=== PATIENT | male | born 1990 | race Caucasian/White ===

== ENCOUNTER 2020-09-24 10:26 | Outpatient (CLI) | payer OTHER | END 2020-09-24 10:34 | disposition home or self-care (01) | LOC: RAD 10:26 | PROVIDERS: ATTEND Podiatrist Foot Surgery | DX: M86.071 Acute hematogenous osteomyelitis, right ankle and foot (principal); M86.072 Acute hematogenous osteomyelitis, left ankle and foot ==

== ENCOUNTER 2020-10-24 15:49 | Outpatient (CLI) | payer OTHER | END 2020-10-24 16:01 | disposition home or self-care (01) | LOC: RAD 15:49 | PROVIDERS: ATTEND Podiatrist Foot Surgery | DX: M20.41 Other hammer toe(s) (acquired), right foot (principal) ==

== ENCOUNTER → 2023-04-12 | Emergency (ER) | payer OTHER ==
[~2023-04-12] VITALS: Ht 172.7 cm; Wt 70.3 kg
== END | disposition left against medical advice (07) ==
LOC: ER 07:53
DX: M79.672 Pain in left foot (principal)

== ENCOUNTER 2024-09-08 12:52 | Emergency (ER) | payer OTHER ==
[~2024-09-08] VITALS: Ht 172.7 cm; Wt 77.1 kg
[2024-09-08] MEDS ORDERED: KETOROLAC TROMETHAMINE 30 MG VIAL IM STA (14:38)
== END 2024-09-08 14:42 | disposition home or self-care (01) ==
LOC: ER 12:55
DX: R07.89 Other chest pain (principal)

== ENCOUNTER → 2024-09-11 | Emergency (ER) | payer OTHER ==
[~2024-09-11] VITALS: Ht 172.7 cm; Wt 77.1 kg
[~2024-09-11] MED LIST: KETOROLAC TROMETHAMINE 60 MG VIAL IM ONE
== END | disposition home or self-care (01) ==
LOC: ER 13:12
DX: M94.0 Chondrocostal junction syndrome [Tietze] (principal)

== ENCOUNTER → 2024-12-30 | Emergency (ER) | payer OTHER ==
[~2024-12-30] VITALS: Ht 172.7 cm; Wt 79.4 kg
== END | disposition home or self-care (01) ==
LOC: ER 09:46
DX: B00.1 Herpesviral vesicular dermatitis (principal)